=== PATIENT | female | born 1995 | race Caucasian/White ===

== ENCOUNTER → 2016-08-31 | Outpatient (CLI) | payer OTHER | END | disposition home or self-care (01) | LOC: CFH 13:52 | PROVIDERS: ATTEND Family Medicine | DX: M79.671 Pain in right foot (principal) ==

== ENCOUNTER → 2016-09-21 | Outpatient (CLI) | payer OTHER | END | disposition home or self-care (01) | LOC: CFH 14:13 | PROVIDERS: ATTEND Family Medicine | DX: R20.2 Paresthesia of skin (principal); R53.1 Weakness | CPT/HCPCS: 72146 ==

== ENCOUNTER 2016-10-03 23:30 | Emergency (ER) | payer OTHER ==
[~2016-10-03] VITALS: Ht 182.9 cm; Wt 103.4 kg
[2016-10-03] MEDS ORDERED: LORA10TA72 PO (23:37)
[2016-10-03] MEDS ORDERED: OMEP-110 PO (23:37)
[2016-10-03] MEDS ORDERED: MONT10TA6 PO (23:37)
[2016-10-04] MEDS ORDERED: LEVA15HF2 INH (00:25)
[2016-10-04] MEDS ORDERED: HYDROcodone/APAP 5/325 TABLET ONE (00:40)
[2016-10-04] MEDS ORDERED: ONDANSETRON ODT 4 MG ONE (00:41)
[2016-10-04] MEDS ORDERED: HYDROcodone/APAP 5/325 TABLET PO ONE (01:00)
[2016-10-04] MEDS ORDERED: ONDANSETRON ODT 4 MG PO ONE (01:00)
[2016-10-04 02:17] LABS: HCG UR OBC PASS
[2016-10-04 02:34] VITALS: BP 137/83
[2016-10-04] MEDS ORDERED: PHENAZOPYRIDINE 200 MG TABLET ONE (02:52)
[2016-10-04] MEDS ORDERED: NITROFURANTOIN (MACROBID) 100 MG CAPSULE PO ONE (03:00)
[2016-10-04] MEDS ORDERED: PHENAZOPYRIDINE 200 MG TABLET PO ONE (03:00)
== END 2016-10-04 03:24 | disposition home or self-care (01) ==
LOC: ED 23:59
DX: N30.00 Acute cystitis without hematuria (principal)
CPT/HCPCS: 76856; 81001; 81025; 87086; 99285; Q0162

== ENCOUNTER 2019-10-12 13:28 | Emergency (ER) | payer OTHER ==
[~2019-10-12] VITALS: Ht 182.9 cm; Wt 109.4 kg
[~2019-10-12 13:28] MED LIST: LEVA15HF4 INH; LORA10TA72 PO; MONT10TA6 PO; OMEP-110 PO
[2019-10-12 13:35] VITALS: BP 159/93
--- NOTE | 2019-10-12 13:57 | NUR ---
PT C/O INCREASED COUGHING. PT HX BRONCHITIS/PNA EVERY YEAR. COVID +. PT SPEAKING IN FULL SENTENCES. NADN. PT CONNECTED TO MONITORING. CALL LIGHT IN REACH. MD AT BEDSIDE FOR ASSESSMENT.
== END 2019-10-12 14:19 | disposition home or self-care (01) ==
LOC: ED 13:43
DX: B34.9 Viral infection, unspecified (principal); R05 Cough; R50.9 Fever, unspecified; R07.89 Other chest pain; R06.00 Dyspnea, unspecified; J02.9 Acute pharyngitis, unspecified; R09.81 Nasal congestion
CPT/HCPCS: 99281